=== PATIENT | male | born 1935 | race African-American/Black ===

== ENCOUNTER 2020-02-05 07:54 | Inpatient (IN) ==
[2020-02-05] MEDS ORDERED: GLUCAGON 1 MG VIAL IM PRN (10:42)
[2020-02-05] MEDS ORDERED: CEFUROXIME INJ 1,500 MG in SYRINGE 1 EACH IV ONE (10:42)
[2020-02-05] MEDS ORDERED: DEXTROSE 50% 25 GM/50 ML VIAL IV PRN (10:42)
[2020-02-05] MEDS ORDERED: SODIUM CHLORIDE 0.9% 1,000 ML IV SCH (11:00)
[2020-02-05 11:06] LABS: Basophils % 0.3 % (0.0-0.8); Eosinophils # 0.1 10*3/uL (0.0-0.87); Eosinophils % 0.7 % (0.00-10.9); Hematocrit 31.7 VOL% (42.0-52.0); Hemoglobin 9.8 GM/DL (14.0-18.0); Immature Granulocytes % 0.9 %; Immature Granulocytes Absolute 0.08 #; Lymphocytes # 1.4 10*3/uL (1.4-4.0); Lymphocytes % 14.9 % (21.2-54.2); Mean Corpuscular HGB Conc 30.9 GM/DL (32-36); Mean Corpuscular Volume 83.9 FL (87-102); Mean Platelet Volume 10.1 FL (9.6-12.0); Monocytes % 7.2 % (1.7-12.7); Platelet Count 263 T/CUMM (130-400); Red Blood Count 3.78 MC/CUMM (3.8-5.5); Red Cell Distribution Width 14.2 % (9.3-17.3); White Blood Count 9.3 T/CUMM (4-12)
[2020-02-05 11:31] LABS: Albumin 2.5 G/DL (3.4-5.0); Bilirubin,Total 0.6 MG/DL (0.2-1.0); Calcium 8.5 MG/DL (8.5-10.1); Osmolality,Calculated 276.1 MOS/KG (273-304); Total Protein 7.5 G/DL (6.4-8.3)
[2020-02-05 14:11] LABS: ABG Base Excess 0.6 MMOL/L (-2.5-2.5); ABG HCO3 24.6 MMOL/L (20-26); ABG PCO2 37.2 MM HG (35-48); ABG PH 7.439 (7.35-7.45); ABG PO2 107.3 MM HG (80-95); ABG TCO2 25.8 MMOL/L (23-27)
[2020-02-05] MEDS ORDERED: CLORAZEPATE 3.75 MG TABLET PO PRN (14:47)
[2020-02-05] MEDS ORDERED: MORPHINE 4 MG/1 ML VIAL IV PRN (14:47)
[2020-02-05] MEDS ORDERED: ZALEPLON 5 MG CAPSULE PO PRN (14:47)
[2020-02-05] MEDS ORDERED: NITROGLYCERIN SL 0.4 MG TABLET SL PRN (14:47)
[2020-02-05] MEDS: CHLORHEXIDINE 4% SOLN 118 ML BOTTLE TOP SCH ×2 (16:59→21:36)
[2020-02-05] MEDS: CHLORHEXIDINE 0.12% ORAL RINSE 60 ML BOTTLE SWISH/SPIT SCH (20:10)
[2020-02-05] MEDS: MELOXICAM 7.5 MG TABLET PO SCH (20:10)
[2020-02-06] MEDS: CHLORHEXIDINE 4% SOLN 118 ML BOTTLE TOP SCH ×2 (03:30→08:22)
[2020-02-06] MEDS ORDERED: PAPAVERINE 60 MG/2 ML VIAL ONE (04:22)
[2020-02-06] MEDS ORDERED: VANCOMYCIN 500 MG VIAL ONE (04:22)
[2020-02-06] MEDS ORDERED: VANCOMYCIN 1,000 MG VIAL ONE (04:22)
[2020-02-06] MEDS ORDERED: CEFUROXIME INJ 1,500 MG in SYRINGE 1 EACH IV ONE (06:00)
[2020-02-06] MEDS ORDERED: DIAZEPAM 5 MG TABLET PO ONE (06:00)
[2020-02-06] MEDS ORDERED: FAMOTIDINE 20 MG/2 ML VIAL IV ONE (06:00)
[2020-02-06] MEDS ORDERED: SUFentanil 250 MCG/5 ML AMP ONE (06:11)
[2020-02-06] MEDS ORDERED: MIDAZOLAM 10 MG/2 ML VIAL ONE (06:11)
[2020-02-06 07:49] LABS: ABG Base Excess 1.4 MMOL/L (-2.5-2.5); ABG HCO3 25.7 MMOL/L (20-26); ABG PCO2 33.4 MM HG (35-48); ABG PH 7.476 (7.35-7.45); ABG TCO2 22.6 MMOL/L (23-27); Glucose Heart Surgery 95 MG/DL (74-106); Hematocrit Heart Surgery 27.6 PERCENT (42-52); Hemoglobin Heart Surgery 8.9 G/DL (14.0-18.0); Ionized Calcium Arterial 1.11 MMOL/L (1.21-1.46); PCO2 Patient Temp Arterial 33.4 MMHG; PH Patient Temp Arterial 7.476; Patient Temperature 37 CELCIUS; Potassium Heart/CVR 3.8 MMOL/L (3.5-5.1); Sodium Heart/CVR 136 MMOL/L (135-145)
[2020-02-06] MEDS: MELOXICAM 7.5 MG TABLET PO SCH (08:22)
[2020-02-06] MEDS: CHLORHEXIDINE 0.12% ORAL RINSE 60 ML BOTTLE SWISH/SPIT SCH (08:22)
[2020-02-06 08:30] LABS: Apearance,Urine CLEAR (Clear); Bacteria,Urine Occasional /HPF (Few); Bilirubin,Urine Negative (Negative); Blood, Urine Small mg/dL (Negative); Glucose,Urine (UA) Negative (Negative); Hyaline Casts,Urine 1 /LPF (0-3); Ketones,Urine Negative (Negative); Mucus,Urine Occasional /LPF (Occasional); Nitrite,Urine Negative (Negative); Protein,Urine Negative; RBC,Urine 1 /HPF (0-4); Urine Color Yellow (Yellow); Urine Specific Gravity 1.012 (1.001-1.035); Urine Urobilinogen < 2.0 EU/DL (0.2-1.0)
[2020-02-06] MEDS ORDERED: POTASSIUM CHLORIDE RIDER 100 ML IV ONE (08:39)
[2020-02-06] MEDS ORDERED: CALCIUM CHLORIDE 1,000 MG/10 ML SYRINGE IV ONE (08:39)
[2020-02-06] MEDS ORDERED: SODIUM BICARBONATE 50 MEQ/50 ML VIAL IV ONE ×2 (08:39→10:10)
[2020-02-06] MEDS ORDERED: PHENYLEPHRINE DRIP 40 MG/250 ML PREMIX IV ONE (08:39)
[2020-02-06] MEDS ORDERED: NITROPRUSSIDE 50 MG/2 ML VIAL ONE (08:39)
[2020-02-06 09:01] LABS: Hematocrit Heart Surgery 18.6 PERCENT (42-52); PCO2 Patient Temp Venous 32.6 MM HG; PH Patient Temp Venous 7.483; PO2 Patient Temp Venous 34.9 MM HG; Potassium Heart/CVR 4.9 MMOL/L (3.5-5.1); VBG Base Excess 1.3 MEQ/L (0-4); VBG HCO3 25.5 MEQ/L (24-28); VBG Oxygen Saturation 79.4 %; VBG PCO2 37.7 MMHG (41-51); VBG PH 7.438; VBG PO2 42.9 MMHG (17-40)
[2020-02-06 09:02] LABS: Hemoglobin Heart Surgery 5.9 G/DL (14.0-18.0)
[2020-02-06] MEDS ORDERED: HEPARIN/NACL 0.9% 2 UNITS/ML 500 ML IV ONE (09:03)
[2020-02-06] MEDS ORDERED: NITROGLYCERIN DRIP 50 MG/250 ML BOTTLE IV ONE (09:03)
[2020-02-06] MEDS ORDERED: PHENYLEPHRINE DRIP 20 MG/250 ML PREMIX IV ONE (09:03)
[2020-02-06 09:35] LABS: Hematocrit Heart Surgery 23.2 PERCENT (42-52); Hemoglobin Heart Surgery 7.4 G/DL (14.0-18.0); PCO2 Patient Temp Venous 28.9 MM HG; PH Patient Temp Venous 7.497; PO2 Patient Temp Venous 32.5 MM HG; Potassium Heart/CVR 4.5 MMOL/L (3.5-5.1); VBG Base Excess -0.3 MEQ/L (0-4); VBG Oxygen Saturation 78.8 %; VBG PCO2 33.4 MMHG (41-51); VBG PH 7.452
[2020-02-06 10:09] LABS: ABG Base Excess -1.5 MMOL/L (-2.5-2.5); ABG HCO3 22.9 MMOL/L (20-26); ABG Oxygen Saturation 99.3 % (95-100); ABG PCO2 37.1 MM HG (35-48); ABG PH 7.408 (7.35-7.45); ABG PO2 478.7 MM HG (80-95); Glucose Heart Surgery 216 MG/DL (74-106); Hemoglobin Heart Surgery 9.2 G/DL (14.0-18.0); Ionized Calcium Arterial 1.14 MMOL/L (1.21-1.46); PCO2 Patient Temp Arterial 37.1 MMHG; PH Patient Temp Arterial 7.408; PO2 Patient Temp Arterial 478.7 MM HG; Patient Temperature 37 CELCIUS; Potassium Heart/CVR 4.1 MMOL/L (3.5-5.1); Sodium Heart/CVR 129 MMOL/L (135-145)
[2020-02-06] MEDS ORDERED: LIDOCAINE 2% 5 ML VIAL ONE ×2 (10:10→11:00)
[2020-02-06] MEDS ORDERED: MANNITOL 100 GM/500 ML BAG IV ONE (10:10)
[2020-02-06] MEDS ORDERED: PROTAMINE SULFATE 250 MG/25 ML VIAL IV ONE (10:10)
[2020-02-06] MEDS ORDERED: DEXTROSE 5% KCL 20 MEQ 20 MEQ/1,000 ML BAG IV ONE (10:10)
[2020-02-06] MEDS ORDERED: ALBUMIN 25% 25 GM/100 ML VIAL IV ONE (10:10)
[2020-02-06] MEDS ORDERED: HEPARIN 10,000 UNIT/10 ML VIAL ONE (10:11)
[2020-02-06] MEDS ORDERED: methylPREDNISolone SOD SUC 1,000 MG/8 ML VIAL ONE (10:11)
[2020-02-06] MEDS ORDERED: FUROSEMIDE 20 MG/2 ML VIAL ONE (10:11)
[2020-02-06] MEDS ORDERED: MAGNESIUM SULFATE 5 GM/10 ML VIAL IV ONE (10:11)
[2020-02-06] MEDS ORDERED: MORPHINE 10 MG/1 ML VIAL IV PRN (10:59)
[2020-02-06] MEDS ORDERED: PHENYLEPHRINE DRIP 40 MG/250 ML PREMIX IV PRN (10:59)
[2020-02-06] MEDS ORDERED: CALCIUM CHLORIDE 1,000 MG/10 ML SYRINGE IV PRN (10:59)
[2020-02-06] MEDS ORDERED: MIDAZOLAM 2 MG/2 ML VIAL IV PRN (10:59)
[2020-02-06] MEDS ORDERED: ACETAMINOPHEN 650 MG SUPP RECTAL PRN (10:59)
[2020-02-06] MEDS ORDERED: MIDAZOLAM 10 MG/2 ML VIAL IV PRN (10:59)
[2020-02-06] MEDS ORDERED: LACTATED RINGERS 250 ML IV PRN (10:59)
[2020-02-06] MEDS ORDERED: MAGNESIUM SULF RIDER 4 GM in PREMIX 1 EACH IV PRN (10:59)
[2020-02-06] MEDS ORDERED: DEXTROSE 50% 25 GM/50 ML VIAL IV PRN ×2 (10:59)
[2020-02-06] MEDS ORDERED: CHLORHEXIDINE 4% SOLN 118 ML BOTTLE TOP PRN (10:59)
[2020-02-06] MEDS ORDERED: NITROPRUSSIDE 100 MG in DEXTROSE 5% 250 ML IV PRN (10:59)
[2020-02-06] MEDS ORDERED: VECURONIUM 10 MG VIAL IV PRN ×2 (10:59)
[2020-02-06] MEDS ORDERED: ONDANSETRON 4 MG/2 ML VIAL IV PRN (10:59)
[2020-02-06] MEDS ORDERED: INSULIN REGULAR 100 UNIT/ML IV PRN (10:59)
[2020-02-06] MEDS ORDERED: MORPHINE 4 MG/1 ML VIAL IV PRN (10:59)
[2020-02-06] MEDS ORDERED: POTASSIUM CHLORIDE RIDER 10 MEQ in PREMIX 1 EACH IV PRN (10:59)
[2020-02-06] MEDS ORDERED: SODIUM CHLORIDE 0.45% 1,000 ML IV SCH ×2 (10:59)
[2020-02-06] MEDS ORDERED: MAGNESIUM SULF RIDER 2 GM in PREMIX 1 EACH IV PRN (10:59)
[2020-02-06] MEDS ORDERED: SEVOFLURANE 1 UNIT/15 MINUTE INH ONE (11:00)
[2020-02-06] MEDS ORDERED: MINERAL OIL/PETROLATUM OPH OINT 3.5 GM TUBE ONE (11:00)
[2020-02-06] MEDS ORDERED: CALCIUM CHLORIDE 1,000 MG/10 ML VIAL IV ONE (11:00)
[2020-02-06] MEDS ORDERED: SODIUM CHLORIDE 0.9% 300 ML IV ONE (11:01)
[2020-02-06] MEDS ORDERED: AMINOCAPROIC ACID 5,000 MG/20 ML VIAL ONE (11:01)
[2020-02-06] MEDS ORDERED: SODIUM CHLORIDE 0.9% 250 ML IV ONE (11:01)
[2020-02-06] MEDS ORDERED: SODIUM CHLORIDE 0.9% 1,000 ML IV ONE (11:01)
[2020-02-06] MEDS ORDERED: ETOMIDATE 40 MG/20 ML VIAL IV ONE (11:01)
[2020-02-06 11:30] LABS: ABG Base Excess -1.3 MMOL/L (-2.5-2.5); ABG Oxygen Saturation 98.5 % (95-100); ABG PCO2 49.3 MM HG (35-48); ABG PH 7.323 (7.35-7.45); ABG PO2 155.9 MM HG (80-95); ABG TCO2 26.5 MMOL/L (23-27); Glucose Heart Surgery 182 MG/DL (74-106); Hemoglobin Heart Surgery 10.5 G/DL (14.0-18.0)
[2020-02-06] MEDS: ALBUMIN 5% 12.5 GM in PREMIX 1 EACH IV PRN ×3 (11:30→14:22)
[2020-02-06 11:33] LABS: Basophils % 0.2 % (0.0-0.8); Eosinophils # 0.1 10*3/uL (0.0-0.87); Eosinophils % 0.5 % (0.00-10.9); Hematocrit 31.5 VOL% (42.0-52.0); Immature Granulocytes % 1.4 %; Immature Granulocytes Absolute 0.14 #; Lymphocytes # 0.7 10*3/uL (1.4-4.0); Lymphocytes % 7.4 % (21.2-54.2); Mean Corpuscular HGB Conc 31.7 GM/DL (32-36); Mean Corpuscular Volume 84.2 FL (87-102); Mean Platelet Volume 10.3 FL (9.6-12.0); Monocytes % 5.2 % (1.7-12.7); Neutrophils % 85.3 % (38.7-73.9); Platelet Count 191 T/CUMM (130-400); Red Blood Count 3.74 MC/CUMM (3.8-5.5); Red Cell Distribution Width 14.5 % (9.3-17.3); White Blood Count 9.9 T/CUMM (4-12)
[2020-02-06 11:45] LABS: INR 1.1; PT Patient Result 11.7 SECS (9.8-11.9); Partial Thromboplastin Time 33.9 SECS (23.9-33.8)
[2020-02-06 11:55] LABS: Albumin 2.3 G/DL (3.4-5.0); Calcium 8.1 MG/DL (8.5-10.1); Total Protein 5.8 G/DL (6.4-8.3)
[2020-02-06 11:58] LABS: CKMB % 6.6 %
[2020-02-06 12:00] LABS: Troponin I 3.66 NG/ML (0.00-0.045)
[2020-02-06] MEDS: LACTATED RINGERS 1,000 ML IV PRN ×2 (12:10→17:33)
[2020-02-06 13:00] LABS: ABG Base Excess -0.5 MMOL/L (-2.5-2.5); ABG HCO3 23.9 MMOL/L (20-26); ABG Oxygen Saturation 97.5 % (95-100); ABG PCO2 38.4 MM HG (35-48); ABG PH 7.412 (7.35-7.45); ABG PO2 106.8 MM HG (80-95); ABG TCO2 25.1 MMOL/L (23-27); Glucose Heart Surgery 157 MG/DL (74-106); Hemoglobin Heart Surgery 10.1 G/DL (14.0-18.0); Potassium Heart/CVR 3.9 MMOL/L (3.5-5.1)
[2020-02-06] MEDS: POTASSIUM CHLORIDE RIDER 20 MEQ in PREMIX 1 EACH IV PRN ×2 (13:03→21:40)
[2020-02-06] MEDS: INSULIN REGULAR 100 UNIT/ML IV ONE ×2 (14:25→17:54)
[2020-02-06 15:07] LABS: ABG Base Excess 0.1 MMOL/L (-2.5-2.5); ABG HCO3 24.1 MMOL/L (20-26); ABG Oxygen Saturation 98.7 % (95-100); ABG PCO2 36.3 MM HG (35-48); ABG PO2 178.3 MM HG (80-95); ABG TCO2 25.2 MMOL/L (23-27); Glucose Heart Surgery 146 MG/DL (74-106); Hemoglobin Heart Surgery 9.6 G/DL (14.0-18.0); Potassium Heart/CVR 4.4 MMOL/L (3.5-5.1)
[2020-02-06] MEDS: INSULIN REGULAR DRIP 100 ML IV SCH ×2 (15:13→17:36)
[2020-02-06 17:25] LABS: ABG Base Excess 0.1 MMOL/L (-2.5-2.5); ABG HCO3 24.4 MMOL/L (20-26); ABG Oxygen Saturation 98.7 % (95-100); ABG PCO2 38.1 MM HG (35-48); ABG PH 7.424 (7.35-7.45); ABG PO2 156.4 MM HG (80-95); ABG TCO2 25.6 MMOL/L (23-27); Glucose Heart Surgery 165 MG/DL (74-106); Hemoglobin Heart Surgery 10.9 G/DL (14.0-18.0); Potassium Heart/CVR 4.5 MMOL/L (3.5-5.1)
[2020-02-06] MEDS: CEFUROXIME INJ 1,500 MG in SYRINGE 1 EACH IV SCH (17:33)
[2020-02-06 20:47] LABS: ABG Base Excess -1.6 MMOL/L (-2.5-2.5); ABG HCO3 23.1 MMOL/L (20-26); ABG Oxygen Saturation 98.2 % (95-100); ABG PCO2 39.9 MM HG (35-48); ABG PH 7.376 (7.35-7.45); ABG TCO2 21.3 MMOL/L (23-27); Glucose Heart Surgery 195 MG/DL (74-106); Hematocrit Heart Surgery 31.4 PERCENT (42-52); Hemoglobin Heart Surgery 10.1 G/DL (14.0-18.0); Potassium Heart/CVR 3.9 MMOL/L (3.5-5.1)
[2020-02-06] MEDS ORDERED: CHLORHEXIDINE 0.12% ORAL RINSE 60 ML BOTTLE SWISH/SPIT SCH (21:00)
[2020-02-06 21:21] LABS: CKMB % 5.2 %
[2020-02-06 21:22] LABS: Troponin I 3.4 NG/ML (0.00-0.045)
[2020-02-06 23:08] LABS: ABG Base Excess -3.1 MMOL/L (-2.5-2.5); ABG HCO3 21.8 MMOL/L (20-26); ABG Oxygen Saturation 97.8 % (95-100); ABG PCO2 36.3 MM HG (35-48); ABG PH 7.381 (7.35-7.45); ABG TCO2 19.5 MMOL/L (23-27); Glucose Heart Surgery 170 MG/DL (74-106); Hematocrit Heart Surgery 32.3 PERCENT (42-52); Hemoglobin Heart Surgery 10.5 G/DL (14.0-18.0); Potassium Heart/CVR 4.1 MMOL/L (3.5-5.1)
[2020-02-07 00:26] LABS: ABG Base Excess -2.6 MMOL/L (-2.5-2.5); ABG HCO3 21.8 MMOL/L (20-26); ABG Oxygen Saturation 97.3 % (95-100); ABG PCO2 36.2 MM HG (35-48); ABG PH 7.398 (7.35-7.45); ABG PO2 104.4 MM HG (80-95); ABG TCO2 22.9 MMOL/L (23-27); Glucose Heart Surgery 151 MG/DL (74-106); Hemoglobin Heart Surgery 10.8 G/DL (14.0-18.0); Potassium Heart/CVR 4.1 MMOL/L (3.5-5.1)
[2020-02-07] MEDS: POTASSIUM CHLORIDE RIDER 20 MEQ in PREMIX 1 EACH IV PRN (00:44)
[2020-02-07 01:24] LABS: ABG Base Excess -1.5 MMOL/L (-2.5-2.5); ABG HCO3 23.2 MMOL/L (20-26); ABG Oxygen Saturation 98.4 % (95-100); ABG PCO2 37.3 MM HG (35-48); ABG PH 7.398 (7.35-7.45); ABG TCO2 20.9 MMOL/L (23-27); Glucose Heart Surgery 137 MG/DL (74-106); Hematocrit Heart Surgery 31.2 PERCENT (42-52); Hemoglobin Heart Surgery 10.1 G/DL (14.0-18.0); Potassium Heart/CVR 4.2 MMOL/L (3.5-5.1)
[2020-02-07 02:16] LABS: ABG Base Excess -0.8 MMOL/L (-2.5-2.5); ABG HCO3 23.7 MMOL/L (20-26); ABG Oxygen Saturation 98.8 % (95-100); ABG PCO2 38.3 MM HG (35-48); ABG TCO2 21.5 MMOL/L (23-27); Glucose Heart Surgery 121 MG/DL (74-106); Hematocrit Heart Surgery 31.7 PERCENT (42-52); Hemoglobin Heart Surgery 10.3 G/DL (14.0-18.0); Potassium Heart/CVR 4.3 MMOL/L (3.5-5.1)
[2020-02-07 03:55] LABS: ABG Base Excess -0.6 MMOL/L (-2.5-2.5); ABG HCO3 23.9 MMOL/L (20-26); ABG Oxygen Saturation 98.4 % (95-100); ABG PCO2 38.8 MM HG (35-48); ABG PH 7.399 (7.35-7.45); ABG TCO2 21.7 MMOL/L (23-27); Glucose Heart Surgery 99 MG/DL (74-106); Hematocrit Heart Surgery 32.1 PERCENT (42-52); Hemoglobin Heart Surgery 10.4 G/DL (14.0-18.0); Potassium Heart/CVR 4.3 MMOL/L (3.5-5.1)
[2020-02-07 03:56] LABS: Basophils % 0.1 % (0.0-0.8); Hematocrit 31.7 VOL% (42.0-52.0); Hemoglobin 10.3 GM/DL (14.0-18.0); Immature Granulocytes % 0.7 %; Immature Granulocytes Absolute 0.11 #; Lymphocytes # 0.7 10*3/uL (1.4-4.0); Lymphocytes % 4.6 % (21.2-54.2); Mean Corpuscular HGB Conc 32.5 GM/DL (32-36); Mean Corpuscular Volume 84.3 FL (87-102); Mean Platelet Volume 10.3 FL (9.6-12.0); Monocytes % 5.6 % (1.7-12.7); Platelet Count 200 T/CUMM (130-400); Red Blood Count 3.76 MC/CUMM (3.8-5.5); Red Cell Distribution Width 14.6 % (9.3-17.3); White Blood Count 14.9 T/CUMM (4-12)
[2020-02-07] MEDS ORDERED: FUROSEMIDE 40 MG/4 ML VIAL IV ONE (04:01)
[2020-02-07 04:20] LABS: Lymphocytes 4 % (20-55); Platelet Estimate Normal; Segmented Neutrophils 92 % (50-85); Total Cells Counted 100
[2020-02-07 04:21] LABS: Albumin 2.8 G/DL (3.4-5.0); Bilirubin,Direct 0.36 MG/DL (0.0-0.20); Bilirubin,Total 1.6 MG/DL (0.2-1.0); CKMB % 2.4 %; Osmolality,Calculated 284.4 MOS/KG (273-304); Total Protein 6.6 G/DL (6.4-8.3)
[2020-02-07 04:22] LABS: Troponin I 2.93 NG/ML (0.00-0.045)
[2020-02-07] MEDS: CEFUROXIME INJ 1,500 MG in SYRINGE 1 EACH IV SCH ×2 (05:51→18:15)
[2020-02-07] MEDS ORDERED: ONDANSETRON 4 MG/2 ML VIAL IV PRN (08:23)
[2020-02-07] MEDS ORDERED: MAGNESIUM SULF RIDER 2 GM in PREMIX 1 EACH IV PRN (08:23)
[2020-02-07] MEDS ORDERED: MAGNESIUM SULF RIDER 4 GM in PREMIX 1 EACH IV PRN (08:23)
[2020-02-07] MEDS ORDERED: MAGNESIUM HYDROXIDE SUSP 30 ML UDCUP PO PRN (08:23)
[2020-02-07] MEDS ORDERED: ALUMINUM/MAGNES/SIMETH MAX STR 30 ML UDCUP PO PRN (08:23)
[2020-02-07] MEDS ORDERED: GLUCAGON 1 MG VIAL IM PRN (08:23)
[2020-02-07] MEDS ORDERED: ACETAMINOPHEN 325 MG TABLET PO PRN (08:23)
[2020-02-07] MEDS ORDERED: ZALEPLON 5 MG CAPSULE PO PRN (08:23)
[2020-02-07] MEDS ORDERED: DEXTROSE 50% 25 GM/50 ML VIAL IV PRN (08:23)
[2020-02-07] MEDS ORDERED: LOSARTAN 50 MG TABLET PO SCH (09:00)
[2020-02-07] MEDS: ASPIRIN EC 325 MG TABLET PO SCH (09:52)
[2020-02-07] MEDS: PANTOPRAZOLE 40 MG TABLET PO SCH (09:53)
[2020-02-07] MEDS: FERROUS SULFATE 325 MG TABLET PO SCH (09:54)
[2020-02-07] MEDS: DOCUSATE SODIUM 100 MG CAPSULE PO SCH (09:54)
[2020-02-07] MEDS: LOSARTAN 50 MG TABLET PO SCH (09:55)
[2020-02-07] MEDS: allopurinoL 100 MG TABLET PO SCH (09:56)
[2020-02-07] MEDS: oxyCODONE/ACETAMINOPHEN 5-325 MG TABLET PO PRN (09:57)
[2020-02-07] MEDS: CHLORHEXIDINE 0.12% ORAL RINSE 60 ML BOTTLE SWISH/SPIT SCH ×2 (10:02→21:20)
[2020-02-07] MEDS: SODIUM CHLOR 0.45% KCL 20 MEQ 20 MEQ/1,000 ML BAG IV SCH (12:37)
[2020-02-07 12:40] LABS: CKMB % 1.8 %
[2020-02-07 12:41] LABS: Troponin I 2.3 NG/ML (0.00-0.045)
[2020-02-07] MEDS ORDERED: SODIUM CHLORIDE 0.9% 100 ML IV ONE (18:08)
[2020-02-07] MEDS: ROSUVASTATIN 20 MG TABLET PO SCH (21:17)
[2020-02-08 05:28] LABS: Basophils % 0.2 % (0.0-0.8); Hematocrit 30.6 VOL% (42.0-52.0); Immature Granulocytes % 0.9 %; Immature Granulocytes Absolute 0.14 #; Lymphocytes # 1.8 10*3/uL (1.4-4.0); Mean Corpuscular HGB Conc 32.7 GM/DL (32-36); Mean Platelet Volume 10.7 FL (9.6-12.0); Monocytes % 7.7 % (1.7-12.7); Neutrophils % 80.2 % (38.7-73.9); Platelet Count 191 T/CUMM (130-400); Red Cell Distribution Width 14.6 % (9.3-17.3); White Blood Count 16.3 T/CUMM (4-12)
[2020-02-08 05:52] LABS: Albumin 2.5 G/DL (3.4-5.0); Bilirubin,Direct 0.26 MG/DL (0.0-0.20); Bilirubin,Total 1.3 MG/DL (0.2-1.0); Calcium 8.3 MG/DL (8.5-10.1); Osmolality,Calculated 285.7 MOS/KG (273-304); Total Protein 6.3 G/DL (6.4-8.3)
[2020-02-08 05:55] LABS: Alanine Aminotransferase 16 U/L (16-61); Albumin 2.5 G/DL (3.4-5.0); Alkaline Phosphatase 59 U/L (45-117); Aspartate Amino Transferase 24 U/L (0-37); Bilirubin,Indirect 1.4 MG/DL (0.0-1.0); Total Protein 5.9 G/DL (6.4-8.3)
[2020-02-08] MEDS ORDERED: FUROSEMIDE 40 MG/4 ML VIAL IV ONE (06:00)
[2020-02-08] MEDS: DOCUSATE SODIUM 100 MG CAPSULE PO SCH (09:19)
[2020-02-08] MEDS: ASPIRIN EC 325 MG TABLET PO SCH (09:19)
[2020-02-08] MEDS: allopurinoL 100 MG TABLET PO SCH (09:19)
[2020-02-08] MEDS: PANTOPRAZOLE 40 MG TABLET PO SCH (09:19)
[2020-02-08] MEDS: FERROUS SULFATE 325 MG TABLET PO SCH (09:20)
[2020-02-08] MEDS: CHLORHEXIDINE 0.12% ORAL RINSE 60 ML BOTTLE SWISH/SPIT SCH ×2 (09:21→21:43)
[2020-02-08] MEDS: LOSARTAN 50 MG TABLET PO SCH (09:30)
[2020-02-08] MEDS ORDERED: LIDOCAINE 2% 20 ML VIAL ONE (13:15)
[2020-02-08] MEDS: SODIUM CHLOR 0.45% KCL 20 MEQ 20 MEQ/1,000 ML BAG IV SCH (14:53)
[2020-02-08] MEDS: oxyCODONE/ACETAMINOPHEN 5-325 MG TABLET PO PRN (21:41)
[2020-02-08] MEDS: ROSUVASTATIN 20 MG TABLET PO SCH (21:41)
[2020-02-09 06:35] LABS: Albumin 2.4 G/DL (3.4-5.0); Bilirubin,Direct 0.24 MG/DL (0.0-0.20); Bilirubin,Total 1.2 MG/DL (0.2-1.0); Calcium 8.3 MG/DL (8.5-10.1); Total Protein 6.5 G/DL (6.4-8.3)
[2020-02-09 06:36] LABS: Alanine Aminotransferase 20 U/L (16-61); Albumin 2.4 G/DL (3.4-5.0); Alkaline Phosphatase 67 U/L (45-117); Aspartate Amino Transferase 23 U/L (0-37); Basophils % 0.3 % (0.0-0.8); Bilirubin,Indirect 1.5 MG/DL (0.0-1.0); Eosinophils % 0.1 % (0.00-10.9); Hematocrit 32.3 VOL% (42.0-52.0); Hemoglobin 10.4 GM/DL (14.0-18.0); Immature Granulocytes % 0.6 %; Immature Granulocytes Absolute 0.07 #; Lymphocytes # 1.8 10*3/uL (1.4-4.0); Mean Corpuscular HGB Conc 32.2 GM/DL (32-36); Mean Corpuscular Volume 84.3 FL (87-102); Monocytes % 8.9 % (1.7-12.7); Neutrophils % 74.1 % (38.7-73.9); Platelet Count 206 T/CUMM (130-400); Red Blood Count 3.83 MC/CUMM (3.8-5.5); Red Cell Distribution Width 15.2 % (9.3-17.3); Total Protein 5.9 G/DL (6.4-8.3); White Blood Count 11.2 T/CUMM (4-12)
[2020-02-09 06:37] LABS: Troponin I 0.818 NG/ML (0.00-0.045)
[2020-02-09] MEDS: ASPIRIN EC 325 MG TABLET PO SCH (09:24)
[2020-02-09] MEDS: FERROUS SULFATE 325 MG TABLET PO SCH (09:24)
[2020-02-09] MEDS: POLYETHYLENE GLYCOL POWDER 17 GM PACK PO SCH (09:24)
[2020-02-09] MEDS: PANTOPRAZOLE 40 MG TABLET PO SCH (09:24)
[2020-02-09] MEDS: allopurinoL 100 MG TABLET PO SCH (09:24)
[2020-02-09] MEDS: carvediloL 3.125 MG TABLET PO SCH ×2 (09:24→21:40)
[2020-02-09] MEDS: DOCUSATE SODIUM 100 MG CAPSULE PO SCH (09:25)
[2020-02-09] MEDS: LOSARTAN 50 MG TABLET PO SCH (09:25)
[2020-02-09] MEDS: CHLORHEXIDINE 0.12% ORAL RINSE 60 ML BOTTLE SWISH/SPIT SCH ×2 (09:26→21:41)
[2020-02-09] MEDS: oxyCODONE/ACETAMINOPHEN 5-325 MG TABLET PO PRN (14:24)
[2020-02-09] MEDS: ROSUVASTATIN 20 MG TABLET PO SCH (21:40)
[2020-02-10] MEDS ORDERED: DEXTROSE 5% LACTATED RINGERS 500 ML IV ONE (00:59)
[2020-02-10] MEDS: DEXTROSE 5% LACTATED RINGERS 1,000 ML IV SCH ×3 (01:36→17:38)
[2020-02-10 06:29] LABS: Calcium 8.1 MG/DL (8.5-10.1); Osmolality,Calculated 279.4 MOS/KG (273-304)
[2020-02-10] MEDS: CHLORHEXIDINE 0.12% ORAL RINSE 60 ML BOTTLE SWISH/SPIT SCH ×2 (09:18→21:26)
[2020-02-10] MEDS: allopurinoL 100 MG TABLET PO SCH (09:19)
[2020-02-10] MEDS: ASPIRIN EC 325 MG TABLET PO SCH (09:19)
[2020-02-10] MEDS: carvediloL 3.125 MG TABLET PO SCH ×2 (09:19→21:26)
[2020-02-10] MEDS: DOCUSATE SODIUM 100 MG CAPSULE PO SCH (09:19)
[2020-02-10] MEDS: FERROUS SULFATE 325 MG TABLET PO SCH (09:19)
[2020-02-10] MEDS: PANTOPRAZOLE 40 MG TABLET PO SCH (09:19)
[2020-02-10] MEDS: POLYETHYLENE GLYCOL POWDER 17 GM PACK PO SCH (09:20)
[2020-02-10] MEDS: ROSUVASTATIN 20 MG TABLET PO SCH (21:25)
[2020-02-11] MEDS: DEXTROSE 5% LACTATED RINGERS 1,000 ML IV SCH ×3 (01:39→17:47)
[2020-02-11 05:13] LABS: Basophils % 0.2 % (0.0-0.8); Eosinophils # 0.1 10*3/uL (0.0-0.87); Eosinophils % 1.3 % (0.00-10.9); Hematocrit 33.1 VOL% (42.0-52.0); Hemoglobin 10.5 GM/DL (14.0-18.0); Immature Granulocytes % 1.9 %; Lymphocytes # 1.4 10*3/uL (1.4-4.0); Lymphocytes % 12.7 % (21.2-54.2); Mean Corpuscular HGB Conc 31.7 GM/DL (32-36); Mean Corpuscular Volume 85.5 FL (87-102); Mean Platelet Volume 11.1 FL (9.6-12.0); Monocytes % 7.2 % (1.7-12.7); Neutrophils % 76.7 % (38.7-73.9); Platelet Count 234 T/CUMM (130-400); Red Blood Count 3.87 MC/CUMM (3.8-5.5); White Blood Count 10.6 T/CUMM (4-12)
[2020-02-11 06:22] LABS: Alanine Aminotransferase 39 U/L (16-61); Alkaline Phosphatase 74 U/L (45-117); Aspartate Amino Transferase 32 U/L (0-37); Bilirubin,Indirect 1.2 MG/DL (0.0-1.0); Blood Urea Nitrogen 29 MG/DL (7-18); Estimated Glom Filtration Rate 86 ML/MIN; Glucose 141 MG/DL (74-106); Osmolality,Calculated 282.7 MOS/KG (273-304)
[2020-02-11 06:42] LABS: Troponin I 0.399 NG/ML (0.00-0.045)
[2020-02-11] MEDS: FERROUS SULFATE 325 MG TABLET PO SCH (09:42)
[2020-02-11] MEDS: allopurinoL 100 MG TABLET PO SCH (09:42)
[2020-02-11] MEDS: DOCUSATE SODIUM 100 MG CAPSULE PO SCH (09:42)
[2020-02-11] MEDS: ASPIRIN EC 325 MG TABLET PO SCH (09:42)
[2020-02-11] MEDS: CHLORHEXIDINE 0.12% ORAL RINSE 60 ML BOTTLE SWISH/SPIT SCH ×2 (09:43→21:11)
[2020-02-11] MEDS: PANTOPRAZOLE 40 MG TABLET PO SCH (09:43)
[2020-02-11] MEDS: carvediloL 3.125 MG TABLET PO SCH ×2 (09:43→21:09)
[2020-02-11] MEDS: ASCORBIC ACID 500 MG TABLET PO SCH (21:09)
[2020-02-11] MEDS: ROSUVASTATIN 20 MG TABLET PO SCH (21:09)
[2020-02-12] MEDS: DEXTROSE 5% LACTATED RINGERS 1,000 ML IV SCH ×2 (02:27→10:29)
[2020-02-12 04:58] LABS: Basophils % 0.3 % (0.0-0.8); Eosinophils # 0.2 10*3/uL (0.0-0.87); Eosinophils % 1.7 % (0.00-10.9); Hematocrit 32.7 VOL% (42.0-52.0); Hemoglobin 10.5 GM/DL (14.0-18.0); Immature Granulocytes % 1.6 %; Immature Granulocytes Absolute 0.17 #; Lymphocytes # 1.4 10*3/uL (1.4-4.0); Lymphocytes % 13.1 % (21.2-54.2); Mean Corpuscular HGB Conc 32.1 GM/DL (32-36); Mean Corpuscular Volume 83.4 FL (87-102); Mean Platelet Volume 10.7 FL (9.6-12.0); Monocytes % 8.3 % (1.7-12.7); Platelet Count 217 T/CUMM (130-400); Red Blood Count 3.92 MC/CUMM (3.8-5.5); Red Cell Distribution Width 15.1 % (9.3-17.3); White Blood Count 10.9 T/CUMM (4-12)
[2020-02-12 05:44] LABS: Alanine Aminotransferase 73 U/L (16-61); Alkaline Phosphatase 91 U/L (45-117); Aspartate Amino Transferase 52 U/L (0-37); Bilirubin,Indirect 1.1 MG/DL (0.0-1.0); Blood Urea Nitrogen 20 MG/DL (7-18); Calcium 8.2 MG/DL (8.5-10.1); Estimated Glom Filtration Rate 97 ML/MIN; Glucose 149 MG/DL (74-106); Osmolality,Calculated 278.8 MOS/KG (273-304)
[2020-02-12 05:46] LABS: Troponin I 0.232 NG/ML (0.00-0.045)
[2020-02-12] MEDS: carvediloL 3.125 MG TABLET PO SCH ×2 (09:28→21:24)
[2020-02-12] MEDS: PANTOPRAZOLE 40 MG TABLET PO SCH (09:28)
[2020-02-12] MEDS: ASCORBIC ACID 500 MG TABLET PO SCH ×2 (09:28→21:24)
[2020-02-12] MEDS: POTASSIUM CHLORIDE 20 MEQ TABLET PO PRN ×2 (09:28→12:55)
[2020-02-12] MEDS: CHLORHEXIDINE 0.12% ORAL RINSE 60 ML BOTTLE SWISH/SPIT SCH ×2 (09:29→21:24)
[2020-02-12] MEDS: FERROUS SULFATE 325 MG TABLET PO SCH (09:29)
[2020-02-12] MEDS: ASPIRIN EC 325 MG TABLET PO SCH (09:29)
[2020-02-12] MEDS: allopurinoL 100 MG TABLET PO SCH (09:29)
[2020-02-12] MEDS: DOCUSATE SODIUM 100 MG CAPSULE PO SCH ×2 (09:31)
[2020-02-12] MEDS: ROSUVASTATIN 20 MG TABLET PO SCH (21:24)
[2020-02-13] MEDS: DEXTROSE 5% LACTATED RINGERS 1,000 ML IV SCH ×4 (01:06→19:07)
[2020-02-13 06:06] LABS: Calcium 8.2 MG/DL (8.5-10.1); Osmolality,Calculated 280.5 MOS/KG (273-304)
[2020-02-13] MEDS: ASPIRIN EC 325 MG TABLET PO SCH (09:37)
[2020-02-13] MEDS: FERROUS SULFATE 325 MG TABLET PO SCH (09:38)
[2020-02-13] MEDS: PANTOPRAZOLE 40 MG TABLET PO SCH (09:38)
[2020-02-13] MEDS: allopurinoL 100 MG TABLET PO SCH (09:38)
[2020-02-13] MEDS: carvediloL 3.125 MG TABLET PO SCH ×2 (09:38→20:31)
[2020-02-13] MEDS: DOCUSATE SODIUM 100 MG CAPSULE PO SCH (09:38)
[2020-02-13] MEDS: ASCORBIC ACID 500 MG TABLET PO SCH ×2 (09:38→20:31)
[2020-02-13] MEDS: CHLORHEXIDINE 0.12% ORAL RINSE 60 ML BOTTLE SWISH/SPIT SCH ×2 (09:44→20:31)
[2020-02-13] MEDS: oxyCODONE/ACETAMINOPHEN 5-325 MG TABLET PO PRN (09:45)
[2020-02-13] MEDS: ROSUVASTATIN 20 MG TABLET PO SCH (20:31)
[2020-02-14] MEDS: DEXTROSE 5% LACTATED RINGERS 1,000 ML IV SCH ×3 (03:10→16:19)
[2020-02-14 04:56] LABS: Basophils % 0.3 % (0.0-0.8); Eosinophils # 0.4 10*3/uL (0.0-0.87); Eosinophils % 3.6 % (0.00-10.9); Hematocrit 27.8 VOL% (42.0-52.0); Hemoglobin 8.8 GM/DL (14.0-18.0); Immature Granulocytes % 1.7 %; Immature Granulocytes Absolute 0.16 #; Lymphocytes # 1.3 10*3/uL (1.4-4.0); Lymphocytes % 13.7 % (21.2-54.2); Mean Corpuscular HGB Conc 31.7 GM/DL (32-36); Mean Corpuscular Volume 85.3 FL (87-102); Mean Platelet Volume 10.7 FL (9.6-12.0); Monocytes % 7.7 % (1.7-12.7); Platelet Count 219 T/CUMM (130-400); Red Blood Count 3.26 MC/CUMM (3.8-5.5); Red Cell Distribution Width 15.4 % (9.3-17.3); White Blood Count 9.7 T/CUMM (4-12)
[2020-02-14 05:26] LABS: Calcium 7.7 MG/DL (8.5-10.1); Osmolality,Calculated 285.3 MOS/KG (273-304)
[2020-02-14] MEDS: carvediloL 3.125 MG TABLET PO SCH ×2 (09:01→20:42)
[2020-02-14] MEDS: FERROUS SULFATE 325 MG TABLET PO SCH (09:01)
[2020-02-14] MEDS: PANTOPRAZOLE 40 MG TABLET PO SCH (09:01)
[2020-02-14] MEDS: DOCUSATE SODIUM 100 MG CAPSULE PO SCH (09:01)
[2020-02-14] MEDS: allopurinoL 100 MG TABLET PO SCH (09:01)
[2020-02-14] MEDS: ASPIRIN EC 325 MG TABLET PO SCH (09:01)
[2020-02-14] MEDS: ASCORBIC ACID 500 MG TABLET PO SCH ×2 (09:01→20:41)
[2020-02-14] MEDS: CHLORHEXIDINE 0.12% ORAL RINSE 60 ML BOTTLE SWISH/SPIT SCH ×2 (09:02→20:42)
[2020-02-14] MEDS: ROSUVASTATIN 20 MG TABLET PO SCH (20:41)
[2020-02-15] MEDS: DEXTROSE 5% LACTATED RINGERS 1,000 ML IV SCH ×2 (01:00→19:40)
[2020-02-15 06:33] LABS: Basophils % 0.2 % (0.0-0.8); Eosinophils # 0.3 10*3/uL (0.0-0.87); Eosinophils % 2.7 % (0.00-10.9); Hematocrit 27.3 VOL% (42.0-52.0); Hemoglobin 8.7 GM/DL (14.0-18.0); Immature Granulocytes % 1.2 %; Immature Granulocytes Absolute 0.12 #; Lymphocytes # 1.5 10*3/uL (1.4-4.0); Mean Corpuscular HGB Conc 31.9 GM/DL (32-36); Mean Corpuscular Volume 84.5 FL (87-102); Mean Platelet Volume 10.5 FL (9.6-12.0); Monocytes % 7.9 % (1.7-12.7); Platelet Count 225 T/CUMM (130-400); Red Blood Count 3.23 MC/CUMM (3.8-5.5); Red Cell Distribution Width 15.5 % (9.3-17.3); White Blood Count 10.3 T/CUMM (4-12)
[2020-02-15 06:48] LABS: Calcium 7.9 MG/DL (8.5-10.1); Osmolality,Calculated 281.4 MOS/KG (273-304)
[2020-02-15] MEDS: FERROUS SULFATE 325 MG TABLET PO SCH (10:09)
[2020-02-15] MEDS: DOCUSATE SODIUM 100 MG CAPSULE PO SCH (10:09)
[2020-02-15] MEDS: ASCORBIC ACID 500 MG TABLET PO SCH ×2 (10:10→20:23)
[2020-02-15] MEDS: carvediloL 3.125 MG TABLET PO SCH ×2 (10:10→20:23)
[2020-02-15] MEDS: ASPIRIN EC 325 MG TABLET PO SCH (10:10)
[2020-02-15] MEDS: CHLORHEXIDINE 0.12% ORAL RINSE 60 ML BOTTLE SWISH/SPIT SCH ×2 (10:10→20:23)
[2020-02-15] MEDS: PANTOPRAZOLE 40 MG TABLET PO SCH (10:10)
[2020-02-15] MEDS: allopurinoL 100 MG TABLET PO SCH (10:10)
[2020-02-15] MEDS: ROSUVASTATIN 20 MG TABLET PO SCH (20:23)
[2020-02-16] MEDS: DEXTROSE 5% LACTATED RINGERS 1,000 ML IV SCH ×2 (00:43→10:46)
[2020-02-16 06:22] LABS: Basophils % 0.2 % (0.0-0.8); Eosinophils # 0.3 10*3/uL (0.0-0.87); Eosinophils % 2.6 % (0.00-10.9); Hematocrit 30.4 VOL% (42.0-52.0); Hemoglobin 9.7 GM/DL (14.0-18.0); Immature Granulocytes % 1.3 %; Immature Granulocytes Absolute 0.13 #; Lymphocytes # 1.4 10*3/uL (1.4-4.0); Lymphocytes % 13.7 % (21.2-54.2); Mean Corpuscular HGB Conc 31.9 GM/DL (32-36); Mean Corpuscular Volume 84.2 FL (87-102); Mean Platelet Volume 9.8 FL (9.6-12.0); Monocytes % 8.2 % (1.7-12.7); Platelet Count 232 T/CUMM (130-400); Red Blood Count 3.61 MC/CUMM (3.8-5.5); Red Cell Distribution Width 15.4 % (9.3-17.3); White Blood Count 10.2 T/CUMM (4-12)
[2020-02-16 07:02] LABS: Calcium 7.9 MG/DL (8.5-10.1); Osmolality,Calculated 277.7 MOS/KG (273-304)
[2020-02-16] MEDS: ASCORBIC ACID 500 MG TABLET PO SCH ×2 (09:03→20:31)
[2020-02-16] MEDS: ASPIRIN EC 325 MG TABLET PO SCH (09:03)
[2020-02-16] MEDS: carvediloL 3.125 MG TABLET PO SCH ×2 (09:04→20:32)
[2020-02-16] MEDS: DOCUSATE SODIUM 100 MG CAPSULE PO SCH (09:04)
[2020-02-16] MEDS: CHLORHEXIDINE 0.12% ORAL RINSE 60 ML BOTTLE SWISH/SPIT SCH ×2 (09:04→20:32)
[2020-02-16] MEDS: allopurinoL 100 MG TABLET PO SCH (09:04)
[2020-02-16] MEDS: FERROUS SULFATE 325 MG TABLET PO SCH (09:04)
[2020-02-16] MEDS: PANTOPRAZOLE 40 MG TABLET PO SCH (09:04)
[2020-02-16] MEDS: ROSUVASTATIN 20 MG TABLET PO SCH (20:32)
[2020-02-17 06:28] LABS: Basophils % 0.2 % (0.0-0.8); Eosinophils # 0.2 10*3/uL (0.0-0.87); Eosinophils % 2.1 % (0.00-10.9); Hematocrit 28.3 VOL% (42.0-52.0); Lymphocytes # 1.6 10*3/uL (1.4-4.0); Lymphocytes % 15.4 % (21.2-54.2); Mean Corpuscular HGB Conc 31.8 GM/DL (32-36); Mean Corpuscular Volume 84.5 FL (87-102); Mean Platelet Volume 10.6 FL (9.6-12.0); Monocytes % 7.5 % (1.7-12.7); Neutrophils % 73.8 % (38.7-73.9); Platelet Count 229 T/CUMM (130-400); Red Blood Count 3.35 MC/CUMM (3.8-5.5); Red Cell Distribution Width 15.5 % (9.3-17.3); White Blood Count 10.5 T/CUMM (4-12)
[2020-02-17 06:54] LABS: Osmolality,Calculated 279.5 MOS/KG (273-304)
[2020-02-17] MEDS: ASPIRIN EC 325 MG TABLET PO SCH (08:51)
[2020-02-17] MEDS: DOCUSATE SODIUM 100 MG CAPSULE PO SCH (08:51)
[2020-02-17] MEDS: carvediloL 3.125 MG TABLET PO SCH ×2 (08:52→20:26)
[2020-02-17] MEDS: FERROUS SULFATE 325 MG TABLET PO SCH (08:52)
[2020-02-17] MEDS: PANTOPRAZOLE 40 MG TABLET PO SCH (08:54)
[2020-02-17] MEDS: allopurinoL 100 MG TABLET PO SCH (08:54)
[2020-02-17] MEDS: ASCORBIC ACID 500 MG TABLET PO SCH ×2 (08:56→20:26)
[2020-02-17] MEDS: CHLORHEXIDINE 0.12% ORAL RINSE 60 ML BOTTLE SWISH/SPIT SCH ×2 (08:57→20:26)
[2020-02-17] MEDS: ROSUVASTATIN 20 MG TABLET PO SCH (20:26)
[2020-02-18 05:29] LABS: Basophils % 0.3 % (0.0-0.8); Eosinophils # 0.2 10*3/uL (0.0-0.87); Hematocrit 27.4 VOL% (42.0-52.0); Hemoglobin 8.7 GM/DL (14.0-18.0); Immature Granulocytes % 0.8 %; Immature Granulocytes Absolute 0.09 #; Lymphocytes # 1.6 10*3/uL (1.4-4.0); Lymphocytes % 14.7 % (21.2-54.2); Mean Corpuscular HGB Conc 31.8 GM/DL (32-36); Mean Corpuscular Volume 85.4 FL (87-102); Mean Platelet Volume 10.3 FL (9.6-12.0); Monocytes % 7.1 % (1.7-12.7); Neutrophils % 75.1 % (38.7-73.9); Platelet Count 219 T/CUMM (130-400); Red Blood Count 3.21 MC/CUMM (3.8-5.5); Red Cell Distribution Width 15.3 % (9.3-17.3); White Blood Count 10.9 T/CUMM (4-12)
[2020-02-18 05:42] LABS: Calcium 7.8 MG/DL (8.5-10.1); Osmolality,Calculated 279.5 MOS/KG (273-304)
[2020-02-18] MEDS: carvediloL 3.125 MG TABLET PO SCH (09:07)
[2020-02-18] MEDS: ASCORBIC ACID 500 MG TABLET PO SCH (09:07)
[2020-02-18] MEDS: FERROUS SULFATE 325 MG TABLET PO SCH (09:07)
[2020-02-18] MEDS: allopurinoL 100 MG TABLET PO SCH (09:07)
[2020-02-18] MEDS: PANTOPRAZOLE 40 MG TABLET PO SCH (09:07)
[2020-02-18] MEDS: ASPIRIN EC 325 MG TABLET PO SCH (09:07)
[2020-02-18] MEDS: CHLORHEXIDINE 0.12% ORAL RINSE 60 ML BOTTLE SWISH/SPIT SCH (09:08)
[2020-02-18] MEDS: DOCUSATE SODIUM 100 MG CAPSULE PO SCH (09:11)
[2020-02-18 12:31] VITALS: BP 136/58
[2020-02-19] MEDS ORDERED: hydroCHLOROthiazide 25 MG TABLET PO SCH (09:00)
== END 2020-02-18 13:20 | DRG 236 ==
LOC: N.4E 10:04 → SUPCPDRO 10:04 → N.CVR 02-06 10:24 → N.TELES 02-07 13:31